=== PATIENT | male | born 1950 | race Caucasian/White ===

== ENCOUNTER 2016-11-15 06:09 | Emergency (ER) | payer OTHER ==
[~2016-11-15] VITALS: Ht 180.3 cm; Wt 110.0 kg
[~2016-11-15 06:09] MED LIST: AMLO10 PO; ASPI81 PO; ATOR80TA PO; D31000CA PO; HYDR-2768 PO; KCL20 PO; LISI20 PO; TAB-TAB PO
[2016-11-15 06:12] VITALS: BP 149/66; PULSE 96; RESP 18; TEMP 98.6; O2SAT 95
--- NOTE | 2016-11-15 06:25 | PD ---
HPI Chief Complaint: Respiratory Symptoms Time Seen by Provider: 06:18 Travel History International Travel<30 days: No Contact w/Intl Traveler<30days: No Traveled to known affect area: No History of Present Illness HPI 66-year-old male with history of colon cancer with metastases to his liver, receiving chemotherapy, last chemotherapy was 2 days ago and he is currently on a continuous infusion for 48 hours which she receives every 2 weeks, treated by oncologist Dr. Smith, here for evaluation of shortness of breath. For the last 3 days the patient has been having worsening shortness of breath. Shortness of breath is at rest, worse with exertion. He states he is unable to exert himself because of dyspnea. Dyspnea is also worse at night and he complains of orthopnea. He has also been having a persistent cough, but has not looked at his sputum and is unable to tell me if there is hemoptysis. He is having substernal chest discomfort that is made worse with coughing. No known history of cardiopulmonary disease. No history of DVT or PE. He denies fevers or chills. PFSH Past Medical History Cancer: No High Cholesterol: Yes Chemotherapy: Yes (COLON CA WITH METS TO LIVER ) Endocrine: No Genitourinary: No Hypertension: Yes Immune Disorder: No Musculoskeletal: No Neurologic: No Psychiatric: No Reproductive: No Respiratory: No Radiation Therapy: No Social History Alcohol Use: Yes (OCCASIONAL) Tobacco Use: No Substance Use: No Allergies-Medications (Allergen,Severity, Reaction): Coded Allergies: No Known Allergies (Unverified , 11/15/16) Reported Meds & Prescriptions Reported Meds & Active Scripts Active Reported Multi-Vitamin Daily (Multiple Vitamin) 1 Tab Tab 1 Tab PO DAILY Aspirin EC (Aspirin) 81 Mg Tabdr 81 Mg PO DAILY Ferrous Sulfate 325 Mg Tab 324 Mg PO DAILY D-1000 (Cholecalciferol) 1,000 Unit Tab 2 Tab PO DAILY K-Tab (Potassium Chloride) 20 Meq Tab 20 Meq PO DAILY Lisinopril 20 Mg Tab 20 Mg PO DAILY Hydrochlorothiazide 25 Mg Tab 25 Mg PO DAILY Review of Systems Except as stated in HPI: all other systems reviewed are Neg Physical Exam Narrative GENERAL: Well-developed, well-nourished, comfortable, no acute distress. SKIN: Warm and dry. HEAD: Atraumatic. Normocephalic. EYES: Pupils equal and round. No scleral icterus. No injection or drainage. ENT: Mucous membranes pink and moist. NECK: Trachea midline. No JVD. CARDIOVASCULAR: Regular rate and rhythm. Distal pulses brisk and equal bilaterally. RESPIRATORY: No accessory muscle use. Slight bibasilar rales. No wheezes or rhonchi. Breath sounds equal bilaterally. GASTROINTESTINAL: Abdomen soft, non-tender, nondistended. MUSCULOSKELETAL: No obvious deformities. No clubbing. No cyanosis. No edema. Left anterior chest wall with Igaguy-f-Ftep that it is currently accessed and infusing chemotherapy drug. NEUROLOGICAL: Awake and alert. No obvious cranial nerve deficits. Motor grossly within normal limits. Normal speech. PSYCHIATRIC: Appropriate mood and affect; insight and judgment normal. Data Data Last Documented VS Vital Signs Date Time Temp Pulse Resp B/P Pulse Ox O2 Delivery O2 Flow Rate FiO2 11/15/16 06:34 99.6 93 22 122/74 95 Room Air Orders Complete Blood Count With Diff (11/15/16 06:22) Comprehensive Metabolic Panel (11/15/16 06:22) B-Type Natriuretic Peptide (11/15/16 06:22) Act Partial Throm Time (Ptt) (11/15/16 06:22) Prothrombin Time / Inr (Pt) (11/15/16 06:22) Ckmb (Isoenzyme) Profile (11/15/16 06:22) Troponin I (11/15/16 06:22) Influenzae A/B Antigen (11/15/16 06:22) Blood Culture (11/15/16 06:22) Iv Access Insert/Monitor (11/15/16 06:22) Electrocardiogram (11/15/16 06:22) Ecg Monitoring (11/15/16 06:22) Oximetry (11/15/16 06:22) Chest, Single Ap (11/15/16 06:22) Ct Pulmonary Angiogram (11/15/16 06:22) Sodium Chloride 0.9% Flush (Ns Flush) (11/15/16 06:30) Labs Laboratory Tests Test 11/15/16 06:41 White Blood Count 5.8 TH/MM3 Red Blood Count 3.94 MIL/MM3 Hemoglobin 11.7 GM/DL Hematocrit 34.4 % Mean Corpuscular Volume 87.3 FL Mean Corpuscular Hemoglobin 29.7 PG Mean Corpuscular Hemoglobin 34.0 % Concent Red Cell Distribution Width 18.1 % Platelet Count 312 TH/MM3 Mean Platelet Volume 6.9 FL Neutrophils (%) (Auto) 77.5 % Lymphocytes (%) (Auto) 6.0 % Monocytes (%) (Auto) 14.9 % Eosinophils (%) (Auto) 1.3 % Basophils (%) (Auto) 0.3 % Neutrophils # (Auto) 4.5 TH/MM3 Lymphocytes # (Auto) 0.3 TH/MM3 Monocytes # (Auto) 0.9 TH/MM3 Eosinophils # (Auto) 0.1 TH/MM3 Basophils # (Auto) 0.0 TH/MM3 CBC Comment DIFF FINAL Differential Comment MDM Medical Decision Making Medical Screen Exam Complete: Yes Emergency Medical Condition: Yes Medical Record Reviewed: Yes Interpretation(s) EKG: Sinus, rate 91, left axis deviation with old RBBB, essentially unchanged from prior. Differential Diagnosis PE, pulmonary edema, pneumonia, pneumothorax, influenza, bronchitis, chemotherapy-induced cardiomyopathy Narrative Course At approximately 7:00 AM at the end of my shift the patient was signed out to Dr. Rodriguez will follow up with labs, imaging studies, and will disposition the patient appropriately. Ash Sullivan MD Nov 15, 2016 06:25
[2016-11-15] MEDS ORDERED: SODIUM CHLORIDE 0.9% FLUSH 5 ML FLUSH IVF PRN (06:30)
[2016-11-15 06:34] VITALS: BP 122/74; PULSE 93; RESP 22; TEMP 99.6; O2SAT 95
--- NOTE | 2016-11-15 06:42 | RADRPT ---
EXAM DATE/TIME: 11/15/2016 06:20 [facility] COMPARISON: CHEST SINGLE AP, February 21, 2015, 17:04. INDICATIONS : Pt has been SOB x 3 days. MEDICAL HISTORY : Carcinoma, colon. SURGICAL HISTORY : None. ENCOUNTER: Initial ACUITY: 3 days PAIN SCORE: 6/10 LOCATION: Bilateral chest FINDINGS: Approximate 2 cm right midlung nodule is seen. Heart and mediastinum are unremarkable for technique. CONCLUSION: Right lung nodule not present previously and CT chest to follow. KTiffanie Ortiz MD on November 15, 2016 at 6:40 Board Certified Radiologist. This report was verified electronically.
[2016-11-15] MEDS ORDERED: HYDR25TA5 PO (06:50)
[2016-11-15] MEDS ORDERED: LISI-515 PO (06:50)
[2016-11-15] MEDS ORDERED: D-10TAB PO (06:50)
[2016-11-15] MEDS ORDERED: POTA1TAB4 PO (06:50)
[2016-11-15] MEDS ORDERED: FERR325T PO (06:52)
[2016-11-15] MEDS ORDERED: MULT-65 PO (06:52)
[2016-11-15] MEDS ORDERED: ASPI81TA11 PO (06:52)
[2016-11-15 06:55] LABS: AUTOMATED NEUTROPHIL # 4.5 TH/MM3 (1.8-7.7); BASOPHIL % 0.3 % (0.0-2.0); EOSINOPHIL # 0.1 TH/MM3 (0-0.4); EOSINOPHIL % 1.3 % (0.0-4.0); HEMATOCRIT 34.4 % (39.0-51.0); HEMO FLAGS DIFF FINAL; LYMPHOCYTE # 0.3 TH/MM3 (1.0-4.8); MEAN CELL VOLUME 87.3 FL (80.0-100.0); MEAN CORPUSCULAR HEMOGLOBIN 29.7 PG (27.0-34.0); MONO % 14.9 % (0.0-8.0); NEUT % 77.5 % (16.0-70.0); PLATELET COUNT 312 TH/MM3 (150-450); RED BLOOD COUNT 3.94 MIL/MM3 (4.50-5.90); RED CELL DISTRIBUTION WIDTH 18.1 % (11.6-17.2); WHITE BLOOD COUNT 5.8 TH/MM3 (4.0-11.0)
[2016-11-15 07:06] LABS: APTT (PATIENT) 27.6 SEC (24.3-30.1); PROTHROMBIN TIME - PATIENT 10.6 SEC (9.8-11.6)
[2016-11-15 07:13] LABS: ALT (GPT) 42 U/L (12-78); ANION GAP 8 MEQ/L (5-15); AST (GOT) 65 U/L (15-37); BICARBONATE 26.1 MEQ/L (21.0-32.0); BLOOD UREA NITROGEN 24 MG/DL (7-18); CHLORIDE 94 MEQ/L (98-107); GLOMERULAR FILTRATION RATE 54 ML/MIN (>89); POTASSIUM 4.2 MEQ/L (3.5-5.1); SODIUM (NA) 128 MEQ/L (136-145)
[2016-11-15 07:17] LABS: ALKALINE PHOSPHATASE 254 U/L (45-117); TOTAL BILIRUBIN ADULT 0.6 MG/DL (0.2-1.0)
[2016-11-15 07:22] LABS: CREATINE KINASE 93 U/L (39-308)
--- NOTE | 2016-11-15 07:33 | PD ---
Data Data Last Documented VS Vital Signs Date Time Temp Pulse Resp B/P Pulse Ox O2 Delivery O2 Flow Rate FiO2 11/15/16 08:36 18 94 Room Air 11/15/16 06:34 99.6 93 122/74 Orders Complete Blood Count With Diff (11/15/16 06:22) Comprehensive Metabolic Panel (11/15/16 06:22) B-Type Natriuretic Peptide (11/15/16 06:22) Act Partial Throm Time (Ptt) (11/15/16 06:22) Prothrombin Time / Inr (Pt) (11/15/16 06:22) Ckmb (Isoenzyme) Profile (11/15/16 06:22) Troponin I (11/15/16 06:22) Influenzae A/B Antigen (11/15/16 06:22) Blood Culture (11/15/16 06:22) Iv Access Insert/Monitor (11/15/16 06:22) Electrocardiogram (11/15/16 06:22) Ecg Monitoring (11/15/16 06:22) Oximetry (11/15/16 06:22) Chest, Single Ap (11/15/16 06:22) Ct Pulmonary Angiogram (11/15/16 06:22) Sodium Chloride 0.9% Flush (Ns Flush) (11/15/16 06:30) Iohexol 350 Inj (Omnipaque 350 Inj) (11/15/16 07:54) Labs Laboratory Tests Test 11/15/16 06:41 White Blood Count 5.8 TH/MM3 Red Blood Count 3.94 MIL/MM3 Hemoglobin 11.7 GM/DL Hematocrit 34.4 % Mean Corpuscular Volume 87.3 FL Mean Corpuscular Hemoglobin 29.7 PG Mean Corpuscular Hemoglobin 34.0 % Concent Red Cell Distribution Width 18.1 % Platelet Count 312 TH/MM3 Mean Platelet Volume 6.9 FL Neutrophils (%) (Auto) 77.5 % Lymphocytes (%) (Auto) 6.0 % Monocytes (%) (Auto) 14.9 % Eosinophils (%) (Auto) 1.3 % Basophils (%) (Auto) 0.3 % Neutrophils # (Auto) 4.5 TH/MM3 Lymphocytes # (Auto) 0.3 TH/MM3 Monocytes # (Auto) 0.9 TH/MM3 Eosinophils # (Auto) 0.1 TH/MM3 Basophils # (Auto) 0.0 TH/MM3 CBC Comment DIFF FINAL Differential Comment Prothrombin Time 10.6 SEC Prothromb Time International 1.0 RATIO Ratio Activated Partial 27.6 SEC Thromboplast Time Sodium Level 128 MEQ/L Potassium Level 4.2 MEQ/L Chloride Level 94 MEQ/L Carbon Dioxide Level 26.1 MEQ/L Anion Gap 8 MEQ/L Blood Urea Nitrogen 24 MG/DL Creatinine 1.32 MG/DL Estimat Glomerular Filtration 54 ML/MIN Rate Random Glucose 133 MG/DL Calcium Level 8.6 MG/DL Total Bilirubin 0.6 MG/DL Aspartate Amino Transf 65 U/L (AST/SGOT) Alanine Aminotransferase 42 U/L (ALT/SGPT) Alkaline Phosphatase 254 U/L Total Creatine Kinase 93 U/L Troponin I LESS THAN 0.02 NG/ML B-Type Natriuretic Peptide 106 PG/ML Total Protein 7.2 GM/DL Albumin 2.9 GM/DL MDM Supervised Visit with MARITZA: No Narrative Course Patient signed out to me by previous provider. Please see associated no for further details. In short patient is a 66-year-old male with colon cancer currently undergoing chemotherapy here with increasing dyspnea, orthopnea. No history of cardiopulmonary, DVT or PE disease. Previous provider was concerned for PE versus lung mass versus chemotherapy-induced cardiomyopathy. Old right bundle-branch block on EKG, chest x-ray was new pulmonary nodule. Patient signed out to me pending laboratory workup and CT pulmonary angiogram. Laboratory workup notable for baseline hyponatremia with sodium of 128, mild renal insufficiency. CT pulmonary angiogram showed metastatic disease but no evidence of PE. I spoke with Dr. Smith, patient's oncologist who knows of the metastatic spread to the liver and lungs. He agrees that this is not likely cardiopulmonary and more likely physical deconditioning from his underlying cancer and chemotherapy. Patient was ambulatory in the emergency department without difficulty. He did not desaturate, become tachypneic or tachycardic and will be discharged home to follow-up with Dr. Smith as an outpatient. Diagnosis Primary Impression: Dyspnea on exertion Additional Impressions: Orthopnea Physical deconditioning Referrals: Grayson Smith MD call for appointment Additional Instruction: Follow-up with Dr. Smith as scheduled. Return to the ER for the warning signs discussed. Med/Other Pt SpecificInfo: No Change to Meds Disposition: 01 DISCHARGE HOME Condition: Stable Kimberly Willis MD Nov 15, 2016 07:33
[2016-11-15] MEDS ORDERED: IOHEXOL 350 MG/ML 10 ML VIAL (for RAD DIAG) IV ONE (07:54)
--- NOTE | 2016-11-15 08:16 | RADRPT ---
EXAM DATE/TIME: 11/15/2016 07:35 [facility] COMPARISON: CT ABDOMEN & PELVIS W/O CONTRAST, February 18, 2015, 11:43. CHEST SINGLE AP, February 21, 2015, 17:04. CH EST SINGLE AP, November 15, 2016, 6:20. INDICATIONS : Increasing shortness of breath for 3 days. IV CONTRAST: 50 cc Omnipaque 350 (iohexol) IV RADIATION DOSE: 19.25 CTDIvol (mGy) MEDICAL HISTORY : Carcinoma, colon. Metastatic, liver. Hypertension. SURGICAL HISTORY : None. ENCOUNTER: Initial ACUITY: 3 days PAIN SCALE: 0/10 LOCATION: chest TECHNIQUE: Volumetric scanning of the chest was performed using a pulmonary embolism protocol MIP images were re constructed. Using automated exposure control and adjustment of the mA and/or kV according to patien t size, radiation dose was kept as low as reasonably achievable to obtain optimal diagnostic quality images. FINDINGS: PULMONARY ARTERIES: No filling defects are seen in the pulmonary arteries through the segmental level. LUNGS: Several pulmonary masses are seen. These include a 1.8 cm mass in the posterior right upper lobe and a 2.1 cm mass in the posterior lateral right lower lobe. There are smaller masses seen in the posteri or medial right lower lobe measuring 1.3 cm, a 1.2 cm mass in the anterior left upper lung, a 1.1 cm mass in the posterior medial left lower lobe and at least 2 subcentimeter masses in the left upper sanaz ng. There is chronic emphysematous disease in the upper lungs. PLEURAE: There is no pleural thickening or pleural effusion. MEDIASTINUM: There is a 5.3 cm aneurysm of the ascending aorta. Coronary artery calcifications are present. There calcified lymph nodes in the right paratracheal, precarinal, subcarinal and right hilar regions. Sign ificant soft tissue adenopathy is not clearly appreciated. There is Itoosw-m-Fvis in place from the l eft subclavian approach. MUSCULOSKELETAL: Within normal limits for patient age. MISCELLANEOUS: There is a large low-density mass seen in the left lobe of the liver measuring up to 9 cm. There jatinder ral smaller hypodense masses seen in the liver. CONCLUSION: 1. No pulmonary embolus. 2. Multiple pulmonary and hepatic masses. 3. 5.3 cm ascending aortic aneurysm. Nash Dimas MD on November 15, 2016 at 8:02 Board Certified Radiologist. This report was verified electronically.
[2016-11-15 08:36] VITALS: RESP 18; O2SAT 94
[2016-11-15] MEDS ORDERED: PRED20 PO (09:57)
[2016-11-15 10:40] VITALS: BP 114/69
--- NOTE | 2016-11-15 22:39 | EKG ---
Date Performed: 11/15/2016 Time Performed: 05:42:01 PTAGE: 66 years EKG: Sinus rhythm BORDERLINE LEFT AXIS DEVIATION RIGHT BUNDLE BRANCH BLOCK ABNORMAL ECG PREVIOUS TRACING : 02/19/2015 15.13 DOCTOR: David Coombs Interpretating Date/Time 11/15/2016 22:36:35
== END 2016-11-15 10:40 | disposition home or self-care (01) ==
LOC: NEPE 06:09
DX: R06.09 Other forms of dyspnea (principal); R06.01 Orthopnea; R91.1 Solitary pulmonary nodule; I45.10 Unspecified right bundle-branch block; C78.7 Secondary malignant neoplasm of liver and intrahepatic bile duct; I10 Essential (primary) hypertension; R94.31 Abnormal electrocardiogram [ECG] [EKG]; Z85.038 Personal history of other malignant neoplasm of large intestine; Z92.21 Personal history of antineoplastic chemotherapy; Z79.899 Other long term (current) drug therapy
CPT/HCPCS: 71010; 71275; 80053; 82550; 83880; 84484; 85025; 85610; 85730; 87040; 93005; 99285; Q9967

== ENCOUNTER 2017-02-22 07:50 | Observation (INO) | payer OTHER ==
[2017-02-22] VITALS (12 sets, daily range): BP systolic 101–164; BP diastolic 57–86; PULSE 84–122; RESP 17–20; TEMP 97.5–98.5; O2SAT 92–97
[~2017-02-22] VITALS: Ht 188 cm; Wt 100.0 kg
[~2017-02-22 07:50] MED LIST changes: -AMLO10 PO; -ASPI81 PO; +ASPI81TA11 PO; -ATOR80TA PO; +D-10TAB PO; -D31000CA PO; +FERR325T PO; -HYDR-2768 PO; +HYDR25TA5 PO; -KCL20 PO; +LISI-515 PO; -LISI20 PO; +MULT-65 PO; +POTA1TAB4 PO; +PRED20 PO; -TAB-TAB PO
[2017-02-22] MEDS ORDERED: FURO1TAB60 PO (08:13)
[2017-02-22] MEDS ORDERED: ZOFR8TAB PO (08:27)
[2017-02-22] MEDS ORDERED: OXYC1TAB63 PO (08:28)
[2017-02-22] MEDS ORDERED: SODIUM CHLORIDE 0.9% FLUSH 10 ML FLUSH IV FLUSH PRN ×2 (08:30→10:15)
--- NOTE | 2017-02-22 08:41 | RADRPT ---
EXAM DATE/TIME: 02/22/2017 08:35 [facility] COMPARISON: CT PULMONARY ANGIOGRAM, November 15, 2016, 7:35. CHEST SINGLE AP, November 15, 2016, 6:20. INDICATIONS : Patient complains of bilateral leg swelling. Patient states they have no chest complaints. MEDICAL HISTORY : None. SURGICAL HISTORY : None. ENCOUNTER: Initial ACUITY: 1 day PAIN SCORE: 0/10 LOCATION: chest FINDINGS: There is a nodule overlying the right lung base measuring 2.6 cm. Right mid lung nodule measuring 2.1 cm again seen left basilar atelectasis. Small left effusion suspected. Osseous structures are intact . Borderline cardiomegaly. CONCLUSION: Right lung nodules. Left basilar atelectasis and small left effusion. Soham Green MD on February 22, 2017 at 8:38 Board Certified Radiologist. This report was verified electronically.
[2017-02-22] MEDS ORDERED: DILTIAZEM HCL 25 MG/5 ML VIAL IV ONE (09:00)
[2017-02-22 09:10] LABS: AUTOMATED NEUTROPHIL # 5.2 TH/MM3 (1.8-7.7); BASOPHIL % 0.2 % (0.0-2.0); EOSINOPHIL % 0.5 % (0.0-4.0); HEMATOCRIT 24.8 % (39.0-51.0); LYMPH % 9.3 % (9.0-44.0); LYMPHOCYTE # 0.6 TH/MM3 (1.0-4.8); MEAN CELL VOLUME 76.9 FL (80.0-100.0); MEAN CORPUSCULAR HEMOGLOBIN 24.4 PG (27.0-34.0); MEAN CORPUSCULAR HGB CONC 31.7 % (32.0-36.0); MONO % 12.3 % (0.0-8.0); NEUT % 77.7 % (16.0-70.0); PLATELET COUNT 172 TH/MM3 (150-450); RED BLOOD COUNT 3.22 MIL/MM3 (4.50-5.90); RED CELL DISTRIBUTION WIDTH 22.4 % (11.6-17.2); WHITE BLOOD COUNT 6.7 TH/MM3 (4.0-11.0)
[2017-02-22 09:14] LABS: HEMO FLAGS AUTO DIFF
[2017-02-22 09:20] LABS: APTT (PATIENT) 34.3 SEC (24.3-30.1); INTERNATIONAL NORMALIZED RATIO 1.2 RATIO; PROTHROMBIN TIME - PATIENT 13.4 SEC (9.8-11.6)
--- NOTE | 2017-02-22 09:25 | PD ---
HPI Chief Complaint: Edema Time Seen by Provider: 08:07 Travel History International Travel<30 days: No Contact w/Intl Traveler<30days: No Traveled to known affect area: No History of Present Illness HPI 66-year-old male arrives to the ER. He has colon cancer with metastatic disease to the liver and lung. He follows with Dr. Smith of oncology. He was on pulse ox. The patient has had bilateral lower extremity pitting edema for several weeks at least. He had been started on Lasix a few days ago which has not helped. He states he is here because of the edema. He also notes some shortness of breath worse with exertion. He attributes this to ascites. Medical oncology note indicates the patient has very advanced disease and hospice has been consulted however the patient states that there is no plan for hospice care at this time. PFSH Past Medical History Cancer: Yes (Colon) High Cholesterol: Yes Chemotherapy: Yes (last session 2 weeks ago) Endocrine: No Gastrointestinal Disorders: No Genitourinary: No Hypertension: Yes Immune Disorder: No Implanted Vascular Access Dvce: Yes Musculoskeletal: No Neurologic: No Psychiatric: No Reproductive: No Respiratory: No Radiation Therapy: No Past Surgical History Other Surgery: Yes (Colon cancer 2014) Social History Alcohol Use: Yes (OCCASIONAL) Tobacco Use: No Substance Use: No Allergies-Medications (Allergen,Severity, Reaction): Coded Allergies: No Known Allergies (Unverified , 11/15/16) Reported Meds & Prescriptions Reported Meds & Active Scripts Active Reported Oxycodone-Acetaminophen 5-325 mg Tab 2 Tab PO Q6H PRN Zofran (Ondansetron HCl) 8 Mg Tab 8 Mg PO TID Lasix (Furosemide) 40 Mg Tab 40 Mg PO DAILY Multi-Vitamin Daily (Multiple Vitamin) 1 Tab Tab 1 Tab PO DAILY D-1000 (Cholecalciferol) 1,000 Unit Tab 2 Tab PO DAILY Review of Systems Except as stated in HPI: all other systems reviewed are Neg General / Constitutional: No: Fever Musculoskeletal: Positive: Edema Physical Exam Narrative GENERAL: 66-year-old male pleasant, well-nourished well-developed, mild conversational dyspnea SKIN: Focused skin assessment warm/dry. HEAD: Atraumatic. Normocephalic. EYES: Pupils equal and round. No scleral icterus. No injection or drainage. ENT: No nasal bleeding or discharge. Mucous membranes pink and moist. NECK: Trachea midline. No JVD. CARDIOVASCULAR: Tachycardia. Irregular rhythm. RESPIRATORY: Mild tachypnea. Lung sounds clear bilaterally. GASTROINTESTINAL: Prominent abdomen consistent with ascites. No focus of tenderness. MUSCULOSKELETAL: No obvious deformities. No clubbing. No cyanosis. 4+ pitting edema of the bilateral lower extremities to the knees. NEUROLOGICAL: Awake and alert. No obvious cranial nerve deficits. Motor grossly within normal limits. Normal speech. PSYCHIATRIC: Appropriate mood and affect; insight and judgment normal. Data Data Last Documented VS Vital Signs Date Time Temp Pulse Resp B/P Pulse Ox O2 Delivery O2 Flow Rate FiO2 02/22/17 09:25 95 129/86 93 Room Air 02/22/17 07:54 97.7 17 Vital signs reviewed Orders Complete Blood Count With Diff (02/22/17 08:22) Comprehensive Metabolic Panel (02/22/17 08:22) Prothrombin Time / Inr (Pt) (02/22/17 08:22) Act Partial Throm Time (Ptt) (02/22/17 08:22) Iv Access Insert/Monitor (02/22/17 08:22) Ecg Monitoring (02/22/17 08:22) Oximetry (02/22/17 08:22) Sodium Chloride 0.9% Flush (Ns Flush) (02/22/17 08:30) Electrocardiogram (02/22/17 08:22) Chest, Single Ap (02/22/17 08:22) Diltiazem Inj (Cardizem Inj) (02/22/17 09:00) Furosemide (Lasix) (02/23/17 09:00) Oxycodone-Acetamin 5-325 Mg (Percocet (02/22/17 10:15) Cholecalciferol (Vitamin D3) (02/23/17 09:00) Multivitamin (Theragran) (02/23/17 09:00) Diagnostic Radiology Consult (02/22/17 ) Admit Order (Ed Use Only) (02/22/17 10:14) Place In Observation (02/22/17 ) Vital Signs (Adult) Q4H (02/22/17 10:14) Activity Oob Ad Terri (02/22/17 10:14) Furniture Mover / Telemetry .CONTINUOUS (02/22/17 10:14) Intake + Output OLIVE.QSHIFT (02/22/17 10:14) Notify Dr: Other (02/22/17 10:14) Diet Heart Healthy (02/22/17 Lunch) Sodium Chloride 0.9% Flush (Ns Flush) (02/22/17 10:15) Sodium Chloride 0.9% Flush (Ns Flush) (02/22/17 21:00) Acetaminophen (Tylenol) (02/22/17 10:15) Ondansetron Inj (Zofran Inj) (02/22/17 10:15) Bisacodyl Supp (Dulcolax Supp) (02/22/17 10:15) Docusate Sodium (Colace) (02/22/17 10:30) Basic Metabolic Panel (Bmp) (02/23/17 06:00) Complete Blood Count With Diff (02/23/17 06:00) Urinalysis - C+S If Indicated (02/22/17 10:14) Resp Oxygen Jose C Titrat 1-4 L (02/22/17 ) Case Management Consult (02/22/17 10:14) Heparin Inj (Heparin Inj) (02/22/17 11:00) Naloxone Inj (Narcan Inj) (02/22/17 10:15) Labs Laboratory Tests Test 02/22/17 08:53 White Blood Count 6.7 TH/MM3 Red Blood Count 3.22 MIL/MM3 Hemoglobin 7.9 GM/DL Hematocrit 24.8 % Mean Corpuscular Volume 76.9 FL Mean Corpuscular Hemoglobin 24.4 PG Mean Corpuscular Hemoglobin 31.7 % Concent Red Cell Distribution Width 22.4 % Platelet Count 172 TH/MM3 Mean Platelet Volume 7.7 FL Neutrophils (%) (Auto) 77.7 % Lymphocytes (%) (Auto) 9.3 % Monocytes (%) (Auto) 12.3 % Eosinophils (%) (Auto) 0.5 % Basophils (%) (Auto) 0.2 % Neutrophils # (Auto) 5.2 TH/MM3 Lymphocytes # (Auto) 0.6 TH/MM3 Monocytes # (Auto) 0.8 TH/MM3 Eosinophils # (Auto) 0.0 TH/MM3 Basophils # (Auto) 0.0 TH/MM3 CBC Comment AUTO DIFF Differential Comment AUTO DIFF CONFIRMED Ovalocytes 1+ Prothrombin Time 13.4 SEC Prothromb Time International 1.2 RATIO Ratio Activated Partial 34.3 SEC Thromboplast Time Sodium Level 128 MEQ/L Potassium Level 4.1 MEQ/L Chloride Level 92 MEQ/L Carbon Dioxide Level 21.4 MEQ/L Anion Gap 15 MEQ/L Blood Urea Nitrogen 19 MG/DL Creatinine 1.18 MG/DL Estimat Glomerular Filtration 61 ML/MIN Rate Random Glucose 113 MG/DL Calcium Level 8.4 MG/DL Total Bilirubin 2.1 MG/DL Aspartate Amino Transf 166 U/L (AST/SGOT) Alanine Aminotransferase 26 U/L (ALT/SGPT) Alkaline Phosphatase 826 U/L Total Protein 6.1 GM/DL Albumin 1.8 GM/DL [facility] Medical Decision Making Medical Screen Exam Complete: Yes Emergency Medical Condition: Yes Medical Record Reviewed: Yes Differential Diagnosis Ascites, failure to thrive, pleural effusion, hypoalbuminemia, atrial fibrillation Narrative Course CBC & BMP Diagram 02/22/17 08:53 T bili 2.1 AST 166 Alk phos 826 Albumin 1.8 INR 1.2 Last 24 hours Impressions Chest X-Ray 02/22/17821 Signed Impressions: Service Date/Time: Wednesday, February 22, 2017 08:35 - CONCLUSION: Right lung nodules. Left basilar atelectasis and small left effusion. Soham Green MD The patient will be admitted to the hospital as he has symptomatic ascites as well as atrial fibrillation. He would benefit from paracentesis. He received diltiazem 10 mg and a heart rate decreased to about 115 to 103. Case discussed with Dr. Baxter for the [facility]. Diagnosis Primary Impression: Anemia Qualified Code: D64.9 - Anemia, unspecified type Additional Impressions: Adenocarcinoma of colon metastatic to liver Physical deconditioning Dyspnea on exertion Atrial fibrillation Qualified Code: I48.91 - Atrial fibrillation, unspecified type Edema Qualified Code: R60.9 - Edema, unspecified type Ascites Qualified Code: R18.0 - Malignant ascites Admitting Information Admitting Physician Requests: Nikos Hu MD Feb 22, 2017 09:25
[2017-02-22 09:39] LABS: ANION GAP 15 MEQ/L (5-15); AST (GOT) 166 U/L (15-37); BICARBONATE 21.4 MEQ/L (21.0-32.0); BLOOD UREA NITROGEN 19 MG/DL (7-18); CHLORIDE 92 MEQ/L (98-107); GLOMERULAR FILTRATION RATE 61 ML/MIN (>89); POTASSIUM 4.1 MEQ/L (3.5-5.1); SODIUM (NA) 128 MEQ/L (136-145)
[2017-02-22 09:44] LABS: ALKALINE PHOSPHATASE 826 U/L (45-117); ALT (GPT) 26 U/L (12-78); TOTAL BILIRUBIN ADULT 2.1 MG/DL (0.2-1.0)
[2017-02-22] MEDS ORDERED: NALOXONE HCL 0.4 MG/ML AMP IV PRN (10:15)
[2017-02-22] MEDS ORDERED: BISACODYL 10 MG SUPP RECTAL PRN (10:15)
[2017-02-22] MEDS ORDERED: ACETAMINOPHEN 325 MG TAB PO PRN (10:15)
[2017-02-22 10:16] LABS: OVALOCYTES 1+ (NORMAL); SCAN/DIFF AUTO DIFF CONFIRMED
--- NOTE | 2017-02-22 10:27 | HHI.HP ---
[facility] Primary Care Physician [facility] Admission Diagnosis AFib, Ascites, Dyspnea, Edema, Colon CA Diagnoses: Chief Complaint: Swollen legs. Travel History International Travel<30 Days: No Contact w/Intl Traveler <30 Da: No Traveled to Known Affected Are: No History of Present Illness This is a pleasant 66 y/o Male who was just recently discharged from this facility when he came with abdominal pain, below the umbilicus, he has Colon Cancer, he has Hypertension, Hyperlipidemia, he has Colon Cancer with Metastatic disease to the Liver, Lung and Bones followed by his primary compound specialist doctor Grayson Smith, came to ER with bilateral lower extremity edema, for several weeks, today came to ER due to swollen legs worsening and Ascites. at this time having and Ultrasound to perform his Paracentesis. Past Family Social History Past Medical History Adenocarcinoma of the Colon, metastatic to the Liver, Lung and Bone. Hypertension Hyperlipidemia Past Surgical History Colon cancer 2014 Port placement Cataract removal 2014 Left Eye Extended right hemicolectomy and Biopsy of hepatic masses in 2014 Right hand surgery 1967 Reported Medications Reported Meds & Active Scripts Active Reported Oxycodone-Acetaminophen 5-325 mg Tab 2 Tab PO Q6H PRN Zofran (Ondansetron HCl) 8 Mg Tab 8 Mg PO TID Lasix (Furosemide) 40 Mg Tab 40 Mg PO DAILY Multi-Vitamin Daily (Multiple Vitamin) 1 Tab Tab 1 Tab PO DAILY D-1000 (Cholecalciferol) 1,000 Unit Tab 2 Tab PO DAILY Allergies: Coded Allergies: No Known Allergies (Unverified , 11/15/16) Active Ordered Medications Current Medications Medications (Trade) Dose Ordered Sig/Fran Route Start Time Stop Time Status Last Admin (NS Flush) 2 ml UNSCH PRN IV FLUSH 02/22/17 08:30 (Lasix) 40 mg DAILY PO 02/23/17 09:00 (Percocet 5-325 Mg) 2 tab Q6H PRN PO 02/22/17 10:15 (Vitamin D3) 2,000 units DAILY PO 02/23/17 09:00 (Theragran) 1 tab DAILY PO 02/23/17 09:00 (NS Flush) 2 ml UNSCH PRN IV FLUSH 02/22/17 10:15 UNV (NS Flush) 2 ml BID IV FLUSH 02/22/17 21:00 UNV (Tylenol) 650 mg Q4H PRN PO 02/22/17 10:15 UNV (Zofran Inj) 4 mg Q6H PRN IVP 02/22/17 10:15 UNV (Dulcolax Supp) 10 mg DAILY PRN RECTAL 02/22/17 10:15 UNV (Colace) 100 mg Q12H PO 02/22/17 10:15 UNV (Heparin Inj) 5,000 units Q12H SQ 02/22/17 10:15 UNV (Narcan Inj) 0.4 mg UNSCH PRN IV 02/22/17 10:15 UNV Family History Asked to the patient and denied Social History Alcohol abuse occasional Physical Exam Vital Signs Vital Signs Date Time Temp Pulse Resp B/P Pulse Ox O2 Delivery O2 Flow Rate FiO2 02/22/17 09:25 95 129/86 93 Room Air 02/22/17 09:01 109 121/66 95 Room Air 02/22/17 08:30 95 Room Air 02/22/17 08:16 Room Air 02/22/17 07:54 97.7 122 17 164/77 97 Physical Exam GENERAL: No Acute distress. SKIN: Focused skin assessment warm/dry. HEAD: Atraumatic. Normocephalic. EYES: Pupils equal and round. No scleral icterus. No injection or drainage. ENT: No nasal bleeding or discharge. Mucous membranes pink and moist. NECK: Trachea midline. No JVD. CARDIOVASCULAR: Tachycardia. Irregular rhythm. RESPIRATORY: Mild tachypnea. Lung sounds clear bilaterally. GASTROINTESTINAL: Prominent abdomen consistent with ascites. No focus of tenderness. MUSCULOSKELETAL: No obvious deformities. No clubbing. No cyanosis. 4+ pitting edema of the bilateral lower extremities to the knees. NEUROLOGICAL: Awake and alert. No obvious cranial nerve deficits. Motor grossly within normal limits. Normal speech. PSYCHIATRIC: Appropriate mood and affect; insight and judgment normal. Laboratory Laboratory Tests Test 02/22/17 08:53 White Blood Count 6.7 Red Blood Count 3.22 Hemoglobin 7.9 Hematocrit 24.8 Mean Corpuscular Volume 76.9 Mean Corpuscular Hemoglobin 24.4 Mean Corpuscular Hemoglobin 31.7 Concent Red Cell Distribution Width 22.4 Platelet Count 172 Mean Platelet Volume 7.7 Neutrophils (%) (Auto) 77.7 Lymphocytes (%) (Auto) 9.3 Monocytes (%) (Auto) 12.3 Eosinophils (%) (Auto) 0.5 Basophils (%) (Auto) 0.2 Neutrophils # (Auto) 5.2 Lymphocytes # (Auto) 0.6 Monocytes # (Auto) 0.8 Eosinophils # (Auto) 0.0 Basophils # (Auto) 0.0 CBC Comment AUTO DIFF Differential Comment AUTO DIFF CONFIRMED Ovalocytes 1+ Prothrombin Time 13.4 Prothromb Time International 1.2 Ratio Activated Partial 34.3 Thromboplast Time Sodium Level 128 Potassium Level 4.1 Chloride Level 92 Carbon Dioxide Level 21.4 Anion Gap 15 Blood Urea Nitrogen 19 Creatinine 1.18 Estimat Glomerular Filtration 61 Rate Random Glucose 113 Calcium Level 8.4 Total Bilirubin 2.1 Aspartate Amino Transf 166 (AST/SGOT) Alanine Aminotransferase 26 (ALT/SGPT) Alkaline Phosphatase 826 Total Protein 6.1 Albumin 1.8 Result Diagram: 02/22/17 0853 02/22/17 0853 Imaging Last Impressions Chest X-Ray 02/22/17 08 Signed Impressions: Service Date/Time: Wednesday, February 22, 2017 08:35 - CONCLUSION: Right lung nodules. Left basilar atelectasis and small left effusion. Soham Green MD Assessment and Plan Assessment and Plan 1. Adenocarcinoma of the Colon Metastatic to Lung and Liver. as per his primary compound specialist doctor Grayson Smith he received FOLFOX and Avastin last evaluation by Oncology 02/21/17 as He is dying, he lives alone, no help recommended Hospice and patient accepted. as per patient he is DNR and has already scheduled Hospice he wants to get the Paracentesis and go home if possible today. 2. Hypertension controlled. 3. Hyperlipidemia continue Home medicine 4. Peripheral Edema continue diuretics, added Albumin IV. 5. Ascites for therapeutic Paracentesis. DVT prophylaxis: SCDs awaiting for paracentesis. states wants to go home if possible today he has already scheduled Hospice starting next Friday. Code Status DNR Discussed Condition With Patient, ER physician and nurse Laureano Palma MD Feb 22, 2017 10:26
[2017-02-22] MEDS: DOCUSATE SODIUM 100 MG CAP PO SCH ×2 (10:30→20:29)
[2017-02-22 10:51] LABS: BLOOD, URINE NEG (NEG); GLUCOSE,URINE NEG (NEG); HYALINE CAST, URINE 1 /lpf (RARE); KETONE, URINE NEG (NEG); NITRITE,URINE NEG (NEG); URINE COLOR YELLOW (YELLW/STRAW)
[2017-02-22 10:52] LABS: COMMENT (UR) CULT NOT INDICATED; CULTURE IF INDICATED CULT NOT INDICATED
[2017-02-22] MEDS ORDERED: HEPARIN SODIUM - SQ 10,000 UNITS/ML VIAL SQ SCH (11:00)
[2017-02-22] MEDS: guaiFENesin E.R. 600 MG TAB PO SCH ×2 (11:15→20:29)
--- NOTE | 2017-02-22 11:25 | RADRPT ---
EXAM DATE/TIME: 02/22/2017 10:51 This report includes an Addendum and supersedes previous reports for this exam. [facility] COMPARISON: CT ABDOMEN & PELVIS W/O CONTRAST, February 18, 2015, 11:43. INDICATIONS : Ascites. MEDICAL HISTORY : Hypercholesterolemia. Hypertension. Carcinoma, colon. Chemotherapy. SURGICAL HISTORY : Colon resection. ENCOUNTER: Initial ACUITY: 1 day PAIN SCORE: 3/10 LOCATION: Bilateral abdomen. AREA EVALUATED: Abdomen. FINDINGS: Imaging of the abdomen and pelvis was performed to evaluate for ascites for possible paracentesis. T here is a moderate amount of ascites throughout all 4 quadrants. CONCLUSION: Moderate ascites is identified. Soham Green MD on February 22, 2017 at 11:23 Board Certified Radiologist. This report was verified electronically. ADDENDUM: Because of the small bowel loops and right kidney, a safe access point for paracentesis as not possib le at this time Soham Green MD on February 22, 2017 at 12:13 Board Certified Radiologist. This report was verified electronically.
[2017-02-22] MEDS: RESP: ALBUTEROL 2.5 MG/IPRATROPIUM 0.5 MG NEB (SCH) NEB ×3 (11:33→21:13)
[2017-02-22] MEDS: ALBUMIN HUMAN 25% 25 GM/100 ML BAGP IV SCH (12:32)
[2017-02-22] MEDS: oxyCODONE/ACETAMINOPHEN 5 MG/325 MG TAB PO PRN ×2 (14:45→20:31)
[2017-02-22] MEDS: DILTIAZEM HCL 30 MG TAB PO SCH (17:41)
--- NOTE | 2017-02-22 18:46 | EKG ---
Date Performed: 02/22/2017 Time Performed: 14:15:21 PTAGE: 66 years EKG: ATRIAL FIBRILLATION WITH RAPID VENTRICULAR RESPONSE MARKED LEFT AXIS DEVIATION LAFB RIGHT B UNDLE BRANCH BLOCK ABNORMAL ECG PREVIOUS TRACING : 02/22/2017 08.37 Compared to prior tracing no significant change DOCTOR: Alpa Camarena Interpretating Date/Time 02/22/2017 18:45:31
--- NOTE | 2017-02-22 19:00 | EKG ---
Date Performed: 02/22/2017 Time Performed: 08:37:39 PTAGE: 66 years EKG: SINUS TACHYCARDIA MARKED LEFT AXIS DEVIATION RIGHT BUNDLE BRANCH BLOCK LAFB ABNORMAL ECG Co mpared to the PREVIOUS TRACING rate faster DOCTOR: Alpa Camarena Interpretating Date/Time 02/22/2017 19:00:02
[2017-02-22] MEDS: SODIUM CHLORIDE 0.9% FLUSH 10 ML FLUSH IV FLUSH SCH (20:29)
--- NOTE | 2017-02-22 21:41 | MB ---
cc: JASWANT SIERRA M.D. DATE OF CONSULTATION 02/22/17 REASON FOR CONSULTATION Consult requested by [facility] hospitalist for evaluation of metastatic colon cancer. HISTORY OF PRESENT ILLNESS This is a 66-year-old male. He is a patient of Dr. Smith for metastatic colon cancer. He was diagnosed with colon cancer stage IV in January of 2015, two years ago. He had extensive liver metastasis. He underwent surgery by Dr. Burden. He had right hemicolectomy and liver biopsy which confirmed metastatic tumor to the liver. He saw Dr. Smith who started him on FOLFOX and Avastin chemotherapy in February of 2015. The patient had a good response initially. The patient had developed peripheral neuropathy after the 12 treatments and then he was just treated with Avastin and 5FU chemotherapy starting August last year. 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 The patient subsequently was treated with FOLFIRI chemotherapy. The patient was found to have extensive lung and bone metastasis as well. He recently saw Dr. Smith and hospice was recommended. The patient has already called hospice and have discussed with them and they were going to come in next week, Friday for a consultation. The patient came into the hospital complaining of shortness of breath and swelling of both lower legs. He also has worsening ascites. The patient is admitted to the hospital. Plan is to do paracentesis. I have been asked to see the patient for further evaluation. The patient seems to be very irritated. He is not participating in answering the questions. He says that he is frustrated with the same questions and he prefers not to answer any of those. The history is obtained through the review of the records. REVIEW OF SYSTEMS Unable to obtain because of lack of patient's cooperation. PAST MEDICAL HISTORY Adenocarcinoma of the colon with metastasis to liver, lung and bone. Hypertension. Hypercholesterolemia. PAST SURGICAL HISTORY Surgery for colon cancer two years ago. Infusaport placement. Cataract surgery. Right hand surgery. ALLERGIES None. HOME MEDICATIONS Please see EMR. FAMILY HISTORY Unable to obtain. SOCIAL HISTORY Unable to obtain. PHYSICAL EXAMINATION GENERAL: This is a well-developed, well-nourished chronically ill appearing white male in no apparent distress. VITAL SIGNS: Temperature 97.5, heart rate is 103, blood pressure is 109/66, O2 saturation 92%. HEENT: PERRLA. EOMI, anicteric. No oral lesions noted. NECK: No lymphadenopathy noted. LUNGS: Clear. No wheezing, rhonchi or rales. HEART: Tachycardia with no murmur. ABDOMEN: Distended ascites noted. EXTREMITIES: Pedal edema noted. NEUROLOGY: Awake, alert, oriented times three. SKIN: No significant lesions noted. ASSESSMENT 1. End-stage colon cancer with extensive liver, lung and bone metastasis. 2. Progressive malignant ascites. 3. Edema of the lower extremity due to extensive liver metastasis causing portal hypertension. PLAN I have reviewed his available records and I have discussed with the patient regarding his condition. Dr. Smith has recommended hospice. The patient has discussed with hospice. He has an appointment with them on Friday. When asked the patient that I can have hospice to come while he is in the hospital. He has adamantly refused. He, in fact, got really loud and then he stated that leave this topic alone, I have already made the arrangements and I do not want to see anybody. He expects to be discharged from the hospital over the weekend and he will meet with hospice on Friday. The patient is scheduled to have ultrasound guided therapeutic paracentesis for palliative care. If the patient is still in the hospital then I will have Dr. Smith see him on Friday. Thank you for asking my opinion. Han Sierra MD /EO /8:54 PM /9:03 PM MTDStalin
[2017-02-23] VITALS: BP 111/72; PULSE 57; PULSE 93; RESP 20; TEMP 97.7; O2SAT 93
[2017-02-23] MEDS: ALBUMIN HUMAN 25% 25 GM/100 ML BAGP IV SCH (00:21)
[2017-02-23] MEDS: ONDANSETRON HCL 4 MG/2 ML VIAL IVP PRN ×2 (02:33→08:45)
[2017-02-23] MEDS: oxyCODONE/ACETAMINOPHEN 5 MG/325 MG TAB PO PRN ×2 (02:35→08:45)
[2017-02-23] MEDS: RESP: ALBUTEROL 2.5 MG/IPRATROPIUM 0.5 MG NEB (SCH) NEB ×3 (03:37→14:55)
[2017-02-23 04:00] VITALS: BP 143/74; PULSE 72; RESP 20; TEMP 97.8; O2SAT 95
[2017-02-23] MEDS: DILTIAZEM HCL 30 MG TAB PO SCH ×3 (06:18→12:10)
[2017-02-23 07:13] LABS: AUTOMATED NEUTROPHIL # 5.3 TH/MM3 (1.8-7.7); BASOPHIL % 0.6 % (0.0-2.0); EOSINOPHIL # 0.1 TH/MM3 (0-0.4); EOSINOPHIL % 0.8 % (0.0-4.0); HEMATOCRIT 24.8 % (39.0-51.0); LYMPH % 14.6 % (9.0-44.0); LYMPHOCYTE # 1.1 TH/MM3 (1.0-4.8); MEAN CELL VOLUME 75.2 FL (80.0-100.0); MEAN CORPUSCULAR HEMOGLOBIN 24.4 PG (27.0-34.0); MEAN CORPUSCULAR HGB CONC 32.4 % (32.0-36.0); MONO % 11.7 % (0.0-8.0); NEUT % 72.3 % (16.0-70.0); PLATELET COUNT 174 TH/MM3 (150-450); RED CELL DISTRIBUTION WIDTH 22.5 % (11.6-17.2); WHITE BLOOD COUNT 7.3 TH/MM3 (4.0-11.0)
[2017-02-23 07:32] LABS: HEMO FLAGS AUTO DIFF
[2017-02-23 07:38] LABS: BICARBONATE 24.3 MEQ/L (21.0-32.0); POTASSIUM 4.4 MEQ/L (3.5-5.1)
--- NOTE | 2017-02-23 08:04 | HHI.PR ---
Subjective Remarks This is a pleasant 66 y/o Male who was just recently discharged from this facility when he came with abdominal pain, below the umbilicus, he has Colon Cancer, he has Hypertension, Hyperlipidemia, he has Colon Cancer with Metastatic disease to the Liver, Lung and Bones followed by his primary product delivery specialist doctor Grayson Smith, came to ER with bilateral lower extremity edema, for several weeks, today came to ER due to swollen legs worsening and Ascites. at this time having and Ultrasound to perform his Paracentesis. 02/23: Stable seen in his bedroom, already seen by GI and product delivery specialist as indicated yesterday the patient is not accepting any intervention about Hospice asked from this facility, he has already scheduled this service through [facility] and he has an appointment by tomorrow. also he states will follow in am tomorrow with product delivery specialist Doctor Grayson Smith, no nausea, vomit or diarrhea but continue with abdominal discomfort. Objective Vital Signs Date Time Temp Pulse Resp B/P Pulse Ox O2 Delivery O2 Flow Rate FiO2 02/23/17 04:00 97.8 72 20 143/74 95 02/23/17 04:00 97.8 72 20 143/74 95 02/23/17 03:35 22 02/23/17 00:00 97.7 93 20 111/72 93 02/23/17 00:00 97.7 57 20 111/72 93 02/22/17 21:15 97 02/22/17 20:30 84 02/22/17 20:00 97.7 90 20 113/69 97 02/22/17 20:00 97.7 90 20 113/69 97 02/22/17 17:39 101/57 02/22/17 16:00 97.5 103 18 109/66 92 02/22/17 13:35 98.5 108 20 133/84 95 02/22/17 12:32 90 130/78 93 Room Air 02/22/17 10:59 98 120/69 95 Room Air 02/22/17 09:25 95 129/86 93 Room Air 02/22/17 09:01 109 121/66 95 Room Air 02/22/17 08:30 95 Room Air 02/22/17 08:16 Room Air I/O 02/22/17 02/22/17 02/22/17 02/23/17 02/23/17 02/23/17 07:00 15:00 23:00 07:00 15:00 23:00 Intake Total 900 ml Output Total 650 ml Balance -650 ml 900 ml Intake Oral 700 ml IV Total 200 ml Output Urine Total 650 ml # Voids 3 8 # Bowel Movements 0 Result Diagram: 02/23/17 0700 02/23/17 0700 Imaging Last Impressions Chest X-Ray 02/22/17 0822 Signed Impressions: Service Date/Time: Wednesday, February 22, 2017 08:35 - CONCLUSION: Right lung nodules. Left basilar atelectasis and small left effusion. Soham Green MD Abdomen Ultrasound 02/22/17 0000 Signed Impressions: Service Date/Time: Wednesday, February 22, 2017 10:51 - CONCLUSION: Moderate ascites is identified. Soham Green MD ADDENDUM: Because of the small bowel loops and right kidney, a safe access point for paracentesis as not possible at this time Soham Green MD Procedures No procedures performed Other Results Laboratory Tests Test 02/22/17 02/22/17 02/23/17 08:53 10:33 07:00 Differential Comment AUTO DIFF CONFIRMED Ovalocytes 1+ Prothrombin Time 13.4 SEC Prothromb Time International 1.2 RATIO Ratio Activated Partial 34.3 SEC Thromboplast Time Total Bilirubin 2.1 MG/DL Aspartate Amino Transf 166 U/L (AST/SGOT) Alanine Aminotransferase 26 U/L (ALT/SGPT) Alkaline Phosphatase 826 U/L Total Protein 6.1 GM/DL Albumin 1.8 GM/DL Urine Color YELLOW Urine Turbidity CLEAR Urine pH 5.0 Urine Specific [place] 1.007 Urine Protein NEG mg/dL Urine Glucose (UA) NEG mg/dL Urine Ketones NEG mg/dL Urine Occult Blood NEG Urine Nitrite NEG Urine Bilirubin NEG Urine Urobilinogen 4.0 MG/DL Urine Leukocyte Esterase NEG Urine WBC 1 /hpf Urine Hyaline Casts 1 /lpf Microscopic Urinalysis Comment CULT NOT INDICATED White Blood Count 7.3 TH/MM3 Red Blood Count 3.30 MIL/MM3 Hemoglobin 8.0 GM/DL Hematocrit 24.8 % Mean Corpuscular Volume 75.2 FL Mean Corpuscular Hemoglobin 24.4 PG Mean Corpuscular Hemoglobin 32.4 % Concent Red Cell Distribution Width 22.5 % Platelet Count 174 TH/MM3 Mean Platelet Volume 7.5 FL Neutrophils (%) (Auto) 72.3 % Lymphocytes (%) (Auto) 14.6 % Monocytes (%) (Auto) 11.7 % Eosinophils (%) (Auto) 0.8 % Basophils (%) (Auto) 0.6 % Neutrophils # (Auto) 5.3 TH/MM3 Lymphocytes # (Auto) 1.1 TH/MM3 Monocytes # (Auto) 0.9 TH/MM3 Eosinophils # (Auto) 0.1 TH/MM3 Basophils # (Auto) 0.0 TH/MM3 CBC Comment AUTO DIFF Sodium Level 129 MEQ/L Potassium Level 4.4 MEQ/L Chloride Level 93 MEQ/L Carbon Dioxide Level 24.3 MEQ/L Anion Gap 12 MEQ/L Blood Urea Nitrogen 18 MG/DL Creatinine 1.08 MG/DL Estimat Glomerular Filtration 68 ML/MIN Rate Random Glucose 100 MG/DL Calcium Level 8.7 MG/DL Objective Remarks GENERAL: No Acute distress. SKIN: warm/dry. HEAD: Atraumatic. Normocephalic. EYES: Pupils equal and round. No scleral icterus. No injection or drainage. ENT: No nasal bleeding or discharge. Mucous membranes pink and moist. NECK: Trachea midline. No JVD. CARDIOVASCULAR: Tachycardia. Irregular rhythm. RESPIRATORY: Mild tachypnea. Lung sounds clear bilaterally. GASTROINTESTINAL: Prominent abdomen consistent with ascites. No focus of tenderness. MUSCULOSKELETAL: No obvious deformities. No clubbing. No cyanosis. 4+ pitting edema of the bilateral lower extremities to the knees. NEUROLOGICAL: Awake and alert. No obvious cranial nerve deficits. Motor grossly within normal limits. Normal speech. PSYCHIATRIC: Appropriate mood and affect; insight and judgment normal. Medications and IVs Current Medications Medications (Trade) Dose Ordered Sig/Fran Route Start Time Stop Time Status Last Admin (Lasix) 40 mg DAILY PO 02/23/17 09:00 (Percocet 5-325 Mg) 2 tab Q6H PRN PO 02/22/17 10:15 02/23/17 02:35 (Vitamin D3) 2,000 units DAILY PO 02/23/17 09:00 (Theragran) 1 tab DAILY PO 02/23/17 09:00 (NS Flush) 2 ml UNSCH PRN IV FLUSH 02/22/17 10:15 (NS Flush) 2 ml BID IV FLUSH 02/22/17 21:00 02/22/17 20:29 (Tylenol) 650 mg Q4H PRN PO 02/22/17 10:15 (Zofran Inj) 4 mg Q6H PRN IVP 02/22/17 10:15 02/23/17 02:33 (Dulcolax Supp) 10 mg DAILY PRN RECTAL 02/22/17 10:15 (Colace) 100 mg Q12HR PO 02/22/17 10:30 02/22/17 20:29 (Narcan Inj) 0.4 mg UNSCH PRN IV 02/22/17 10:15 (Albumin 25% Inj) 25 gm Q12H IV 02/22/17 11:00 02/23/17 10:59 02/23/17 00:21 (Mucinex Er) 600 mg BID PO 02/22/17 11:15 02/22/17 20:29 (Cardizem) 30 mg Q6HR PO 02/22/17 18:00 02/23/17 06:18 A/P Assessment and Plan 1. Adenocarcinoma of the Colon Metastatic to Lung and Liver. as per his primary product delivery specialist doctor Grayson Smith he received FOLFOX and Avastin last evaluation by Oncology 02/21/17 as He is dying, he lives alone, no help recommended Hospice and patient accepted. as per patient he is DNR and has already scheduled Hospice, as indicated by IR not safe possible area for paracentesis at this time, he is been recommended to follow with Hospice care and product delivery specialist as outpatient. 2. Hypertension controlled. 3. Hyperlipidemia continue Home medicine 4. Peripheral Edema continue diuretics, added Albumin IV. 5. Ascites for therapeutic Paracentesis was not possible by Interventional Radiology 6. Atrial Fibrillation not candidate for Anticoagulation. continue Cardizem at home, patient is Hospice care Very poor short term prognosis, DVT prophylaxis: SCDs Discharge today and follow with product delivery specialist and Hospice care in am tomorrow the patient was adamant he wants to go home now if the paracentesis can't be done was explained not safe intervention at this time. Code Status DNR Discussed Condition With Patient Discharge Planning Discharge home now. Laureano Palma MD Feb 23, 2017 08:04
[2017-02-23 08:37] VITALS: BP 120/56; PULSE 75; RESP 18; TEMP 98; O2SAT 96
[2017-02-23] MEDS: guaiFENesin E.R. 600 MG TAB PO SCH (08:44)
[2017-02-23] MEDS: DOCUSATE SODIUM 100 MG CAP PO SCH (08:45)
[2017-02-23] MEDS: SODIUM CHLORIDE 0.9% FLUSH 10 ML FLUSH IV FLUSH SCH (08:46)
[2017-02-23] MEDS ORDERED: FUROSEMIDE 40 MG TAB PO SCH (09:00)
[2017-02-23] MEDS ORDERED: CHOLECALCIFEROL (VIT D3) 1000 UNIT TAB PO SCH (09:00)
[2017-02-23] MEDS ORDERED: MULTIVITAMIN TAB PO SCH (09:00)
[2017-02-23 09:45] VITALS: RESP 16
[2017-02-23 11:43] LABS: BANDS 5 % (0-6); MYELOCYTES 2 % (0-0); NEUTROPHIL # MANUAL DIFF 6.1 TH/MM3 (1.8-7.7); OVALOCYTES 1+ (NORMAL); PLATELET ESTIMATE SMEAR NORMAL (NORMAL); PLATELET MORPHOLOGY CLUMPED (NORMAL); POLYS (SEG NEUTROPHILS) 77 % (16-70); SCAN/DIFF FINAL DIFF MANUAL; TEARDROP RBCS 1+ (NORMAL); WBC DIFF SAMPLE 100
--- NOTE | 2017-02-23 12:41 | PD.ONC.PN ---
Subjective Subjective Remarks Afebrile overnight. Patient complaining of tightness in abdomen from ascites, but denies pain. He is waiting for paracentesis. No difficulty breathing at present. Objective Data Date Time Temp Pulse Resp B/P Pulse Ox O2 Delivery O2 Flow Rate FiO2 02/23/17 09:45 16 02/23/17 08:37 98.0 75 18 120/56 96 02/23/17 04:00 97.8 72 20 143/74 95 02/23/17 04:00 97.8 72 20 143/74 95 02/23/17 00:00 97.7 93 20 111/72 93 02/23/17 00:00 97.7 57 20 111/72 93 02/22/17 21:15 97 02/22/17 20:30 84 02/22/17 20:00 97.7 90 20 113/69 97 02/22/17 20:00 97.7 90 20 113/69 97 02/22/17 17:39 101/57 02/22/17 16:00 97.5 103 18 109/66 92 02/22/17 13:35 98.5 108 20 133/84 95 02/23/17 02/23/17 02/23/17 07:00 15:00 23:00 Intake Total 900 ml 613 ml Output Total 380 ml Balance 900 ml 233 ml Result Diagram: 02/23/17 0700 02/23/17 0700 Laboratory Results Laboratory Tests Test 02/23/17 07:00 White Blood Count 7.3 TH/MM3 Red Blood Count 3.30 MIL/MM3 Hemoglobin 8.0 GM/DL Hematocrit 24.8 % Mean Corpuscular Volume 75.2 FL Mean Corpuscular Hemoglobin 24.4 PG Mean Corpuscular Hemoglobin 32.4 % Concent Red Cell Distribution Width 22.5 % Platelet Count 174 TH/MM3 Mean Platelet Volume 7.5 FL Neutrophils (%) (Auto) 72.3 % Lymphocytes (%) (Auto) 14.6 % Monocytes (%) (Auto) 11.7 % Eosinophils (%) (Auto) 0.8 % Basophils (%) (Auto) 0.6 % Neutrophils # (Auto) 5.3 TH/MM3 Lymphocytes # (Auto) 1.1 TH/MM3 Monocytes # (Auto) 0.9 TH/MM3 Eosinophils # (Auto) 0.1 TH/MM3 Basophils # (Auto) 0.0 TH/MM3 CBC Comment AUTO DIFF Differential Total Cells 100 Counted Neutrophils % (Manual) 77 % Band Neutrophils % 5 % Lymphocytes % 10 % Monocytes % 6 % Neutrophils # (Manual) 6.1 TH/MM3 Myelocytes 2 % Differential Comment FINAL DIFF MANUAL Platelet Estimate NORMAL Platelet Morphology Comment CLUMPED Tear Drop Cells 1+ Ovalocytes 1+ Sodium Level 129 MEQ/L Potassium Level 4.4 MEQ/L Chloride Level 93 MEQ/L Carbon Dioxide Level 24.3 MEQ/L Anion Gap 12 MEQ/L Blood Urea Nitrogen 18 MG/DL Creatinine 1.08 MG/DL Estimat Glomerular Filtration 68 ML/MIN Rate Random Glucose 100 MG/DL Calcium Level 8.7 MG/DL Administered Medications Medications (Trade) Dose Ordered Sig/Fran Route PRN Reason Start Time Stop Time Status Last Admin Dose Admin Furosemide (Lasix) 40 mg DAILY PO 02/23/17 09:00 02/23/17 08:45 Oxycodone/ Acetaminophen (Percocet 5-325 Mg) 2 tab Q6H PRN PO PAIN 1-10 02/22/17 10:15 02/23/17 08:45 Cholecalciferol (Vitamin D3) 2,000 units DAILY PO 02/23/17 09:00 02/23/17 08:44 Multivitamins (Theragran) 1 tab DAILY PO NS 02/23/17 09:00 02/23/17 08:46 Sodium Chloride (NS Flush) 2 ml BID IV FLUSH 02/22/17 21:00 02/23/17 08:46 Ondansetron HCl (Zofran Inj) 4 mg Q6H PRN IVP NAUSEA OR VOMITING 02/22/17 10:15 02/23/17 08:45 Docusate Sodium (Colace) 100 mg Q12HR PO 02/22/17 10:30 02/23/17 08:45 Guaifenesin (Mucinex Er) 600 mg BID PO 02/22/17 11:15 02/23/17 08:44 Diltiazem HCl (Cardizem) 30 mg Q6HR PO 02/22/17 18:00 02/23/17 12:10 Objective Remarks GENERAL: chronically ill appearing, middle aged male, sitting up in chair next to bed in [facility]. SKIN: Warm and dry. HEAD: Normocephalic. EYES: No injection or drainage. NECK: Supple, trachea midline. CARDIOVASCULAR: +S1/S2 RESPIRATORY: Breath sounds equal bilaterally. No accessory muscle use. GASTROINTESTINAL: Abdomen distended with ascites. EXTREMITIES: No cyanosis NEUROLOGICAL: awake and alert, normal speech Assessment/Plan Assessment 66y/o male with metastatic colon cancer, admitted ascites, dyspnea. Plan 1. consult to IR paracentesis. 2. supportive care 3. plan for hospice consult tomorrow if patient still inpatient. Attending Statement pt still has abd distention. await palliative paracentesis. ok for d/c after the procedure. Junie Dodge Feb 23, 2017 12:41 Kristine Sierra MD Feb 23, 2017 23:00
[2017-02-23] MEDS ORDERED: DILT31TA PO (14:36)
--- NOTE | 2017-02-23 15:51 | HHI.DS ---
Discharge Summary Admission Date Feb 22, 2017 at 10:18 Discharge Date: Feb 23, 2017 Admitting Diagnosis AFib, Ascites, Dyspnea, Edema, Colon CA (1) Adenocarcinoma of colon metastatic to liver ICD Code: C18.9 Diagnosis: Principal (2) Ascites ICD Code: R18.8 Diagnosis: Principal (3) Atrial fibrillation ICD Code: I48.91 Diagnosis: Principal Procedures No procedures performed to the patient. Brief History - From Admission This is a pleasant 66 y/o Male who was just recently discharged from this facility when he came with abdominal pain, below the umbilicus, he has Colon Cancer, he has Hypertension, Hyperlipidemia, he has Colon Cancer with Metastatic disease to the Liver, Lung and Bones followed by his primary curriculum specialist doctor Grayson Smith, came to ER with bilateral lower extremity edema, for several weeks, today came to ER due to swollen legs worsening and Ascites. at this time having and Ultrasound to perform his Paracentesis. CBC/BMP: 02/23/17 0700 02/23/17 0700 Significant Findings Laboratory Tests Test 02/22/17 02/22/17 02/23/17 08:53 10:33 07:00 Red Blood Count 3.22 MIL/MM3 3.30 MIL/MM3 (4.50-5.90) (4.50-5.90) Hemoglobin 7.9 GM/DL 8.0 GM/DL (13.0-17.0) (13.0-17.0) Hematocrit 24.8 % 24.8 % (39.0-51.0) (39.0-51.0) Mean Corpuscular Volume 76.9 FL 75.2 FL (80.0-100.0) (80.0-100.0) Mean Corpuscular Hemoglobin 24.4 PG 24.4 PG (27.0-34.0) (27.0-34.0) Mean Corpuscular Hemoglobin 31.7 % Concent (32.0-36.0) Red Cell Distribution Width 22.4 % 22.5 % (11.6-17.2) (11.6-17.2) Neutrophils (%) (Auto) 77.7 % 72.3 % (16.0-70.0) (16.0-70.0) Monocytes (%) (Auto) 12.3 % 11.7 % (0.0-8.0) (0.0-8.0) Lymphocytes # (Auto) 0.6 TH/MM3 (1.0-4.8) Ovalocytes 1+ (NORMAL) 1+ (NORMAL) Prothrombin Time 13.4 SEC (9.8-11.6) Activated Partial 34.3 SEC Thromboplast Time (24.3-30.1) Sodium Level 128 MEQ/L 129 MEQ/L (136-145) (136-145) Chloride Level 92 MEQ/L 93 MEQ/L (98-107) (98-107) Blood Urea Nitrogen 19 MG/DL (7-18) Estimat Glomerular Filtration 61 ML/MIN (>89) 68 ML/MIN (>89) Rate Random Glucose 113 MG/DL (74-106) Calcium Level 8.4 MG/DL (8.5-10.1) Total Bilirubin 2.1 MG/DL (0.2-1.0) Aspartate Amino Transf 166 U/L (15-37) (AST/SGOT) Alkaline Phosphatase 826 U/L (45-117) Total Protein 6.1 GM/DL (6.4-8.2) Albumin 1.8 GM/DL (3.4-5.0) Urine Urobilinogen 4.0 MG/DL (LESS THAN 2.0) Neutrophils % (Manual) 77 % (16-70) Myelocytes 2 % (0-0) Platelet Morphology Comment CLUMPED (NORMAL) Tear Drop Cells 1+ (NORMAL) Imaging Last Impressions Chest X-Ray 02/22/17 0822 Signed Impressions: Service Date/Time: Wednesday, February 22, 2017 08:35 - CONCLUSION: Right lung nodules. Left basilar atelectasis and small left effusion. Soham Green MD Abdomen Ultrasound 02/22/17 0000 Signed Impressions: Service Date/Time: Wednesday, February 22, 2017 10:51 - CONCLUSION: Moderate ascites is identified. Soham Green MD ADDENDUM: Because of the small bowel loops and right kidney, a safe access point for paracentesis as not possible at this time Soham Green MD PE at Discharge GENERAL: No Acute distress. SKIN: warm/dry. HEAD: Atraumatic. Normocephalic. EYES: Pupils equal and round. No scleral icterus. No injection or drainage. ENT: No nasal bleeding or discharge. Mucous membranes pink and moist. NECK: Trachea midline. No JVD. CARDIOVASCULAR: Tachycardia. Irregular rhythm. RESPIRATORY: Mild tachypnea. Lung sounds clear bilaterally. GASTROINTESTINAL: Prominent abdomen consistent with ascites. No focus of tenderness. MUSCULOSKELETAL: No obvious deformities. No clubbing. No cyanosis. 4+ pitting edema of the bilateral lower extremities to the knees. NEUROLOGICAL: Awake and alert. No obvious cranial nerve deficits. Motor grossly within normal limits. Normal speech. PSYCHIATRIC: Appropriate mood and affect; insight and judgment normal. Hospital Course This is a pleasant 66 y/o Male who was just recently discharged from this facility when he came with abdominal pain, below the umbilicus, he has Colon Cancer, he has Hypertension, Hyperlipidemia, he has Colon Cancer with Metastatic disease to the Liver, Lung and Bones followed by his primary curriculum specialist doctor Grayson Smith, came to ER with bilateral lower extremity edema, for several weeks, today came to ER due to swollen legs worsening and Ascites. at this time having and Ultrasound to perform his Paracentesis. 02/23: Stable seen in his bedroom, already seen by GI and curriculum specialist as indicated yesterday the patient is not accepting any intervention about Hospice asked from this facility, he has already scheduled this service through [facility] and he has an appointment by tomorrow. also he states will follow in am tomorrow with curriculum specialist Doctor Grayson Smith, no nausea, vomit or diarrhea but continue with abdominal discomfort. Assessment and Plan 1. Adenocarcinoma of the Colon Metastatic to Lung and Liver. as per his primary curriculum specialist doctor Grayson Smith he received FOLFOX and Avastin last evaluation by Oncology 02/21/17 as He is dying, he lives alone, no help recommended Hospice and patient accepted. as per patient he is DNR and has already scheduled Hospice, as indicated by IR not safe possible area for paracentesis at this time, he is been recommended to follow with Hospice care and curriculum specialist as outpatient. 2. Hypertension controlled. 3. Hyperlipidemia continue Home medicine 4. Peripheral Edema continue diuretics, added Albumin IV. 5. Ascites for therapeutic Paracentesis was not possible by Interventional Radiology 6. Atrial Fibrillation not candidate for Anticoagulation. continue Cardizem at home, patient is Hospice care Very poor short term prognosis, DVT prophylaxis: SCDs Discharge today and follow with curriculum specialist and Hospice care in am tomorrow the patient was adamant he wants to go home now if the paracentesis can't be done was explained not safe intervention at this time. Code Status DNR Discussed Condition With Patient Discharge Planning Discharge home now. Pt Condition on Discharge: Stable Discharge Disposition: Discharge Home Discharge Time: <= 30 minutes Discharge Instructions DIET: Follow Instructions for: Heart Healthy Diet Activities you can perform: Regular-No Restrictions Laureano Palma MD Feb 23, 2017 15:51
== END 2017-02-23 15:53 | disposition home or self-care (01) ==
LOC: NEPC 07:50 → NEDA 10:18 → NEPHCDU 13:10
PROVIDERS: ADMIT Internal Medicine; ATTEND Internal Medicine
DX: C18.9 Malignant neoplasm of colon, unspecified (principal); C78.00 Secondary malignant neoplasm of unspecified lung; C79.51 Secondary malignant neoplasm of bone; C78.7 Secondary malignant neoplasm of liver and intrahepatic bile duct; R18.0 Malignant ascites; I10 Essential (primary) hypertension; I48.91 Unspecified atrial fibrillation; K76.6 Portal hypertension; E78.00 Pure hypercholesterolemia, unspecified; E78.5 Hyperlipidemia, unspecified; Z66 Do not resuscitate
CPT/HCPCS: 71010; 76705; 80048; 80053; 81001; 85007; 85025; 85027; 85610; 85730; 93005; 94150; 94640; 94664; 96374; 99285; G0378; J2405; P9047

== ENCOUNTER 2017-03-12 10:16 | Day surgery (SDC) | payer OTHER ==
[~2017-03-12 10:16] MED LIST changes: -ASPI81TA11 PO; +DILT31TA PO; -FERR325T PO; +FURO1TAB60 PO; -HYDR25TA5 PO; -LISI-515 PO; +OXYC1TAB63 PO; -POTA1TAB4 PO; -PRED20 PO; +ZOFR8TAB PO
[2017-03-12 12:40] VITALS: BP 118/83; PULSE 80; RESP 20; TEMP 97.6; O2SAT 91
[2017-03-12 12:55] VITALS: BP 149/70; PULSE 80; RESP 20; O2SAT 94
--- NOTE | 2017-03-12 16:39 | RADRPT ---
EXAM DATE/TIME: 03/12/2017 10:59 [facility] COMPARISON: No previous studies available for comparison. INDICATIONS : Ascites. MEDICAL HISTORY : Carcinoma, colon. Hypertension. SURGICAL HISTORY : Colon surgery. Infusaport. Cataract. Right hand surgery. ENCOUNTER: Initial ACUITY: 4 - 6 days PAIN SCORE: 5/10 LOCATION: Left lower quadrant FLUID: Total volume of 6000 cc of clear, yellow fluid was removed. Fluid was discarded. Paracentesis was therapeutic only. Post procedure scanning reveals no hematoma or other complication. TECHNIQUE: 1. Ultrasound guidance for abdominal paracentesis. 2. Paracentesis. The risks, benefits, and alternatives to ultrasound guided paracentesis were explained to the patient in detail including the risk of bleeding and infection. Written and verbal informed consent was obt ained. With the patient on the ultrasound table, ultrasound imaging was used to select the most appropriate approach for paracentesis. Overlying skin was prepped and draped in the usual sterile fashion and wi th a local anesthetic, a dermatotomy was made with an 11 blade scalpel. A 6 [place] [id number] ca theter was introduced into the peritoneal cavity and fluid was collected. The patient tolerated the procedure well and left the ultrasound suite in stable condition. CONCLUSION: Uncomplicated ultrasound guided paracentesis. Karlos Darling MD FACR on March 12, 2017 at 16:37 Board Certified Radiologist. This report was verified electronically.
== END 2017-03-12 14:15 | disposition home or self-care (01) ==
LOC: HRAD 10:16 → HRIP 10:17 → HRAD 14:15
PROVIDERS: ATTEND Internal Medicine Hematology & Oncology
DX: R18.8 Other ascites (principal); I10 Essential (primary) hypertension; Z85.038 Personal history of other malignant neoplasm of large intestine
CPT/HCPCS: 49083; C1729